=== PATIENT | female | born 1955 | race Caucasian/White ===

== ENCOUNTER 2018-08-12 08:02 | Outpatient (CLI) | payer OTHER | END 2018-08-12 08:03 | disposition home or self-care (01) | LOC: BICRAD 08:02 | PROVIDERS: ATTEND Surgery | DX: M54.16 Radiculopathy, lumbar region (principal); M43.16 Spondylolisthesis, lumbar region; M41.9 Scoliosis, unspecified | CPT/HCPCS: 72070; 72120 ==

== ENCOUNTER 2019-11-04 12:51 | Outpatient (CLI) | payer OTHER ==
--- NOTE | 2019-11-04 15:18 | CT ---
CT OF THE LUMBAR SPINE: DATE: 11/04/2019. COMPARISON: None. HISTORY: Scoliosis, spinal stenosis, low back pain. TECHNIQUE: Axial CT imaging at 2 mm intervals through the lumbar spine with coronal and sagittal reformatted jennifer ging. FINDINGS: Evaluation for central canal and/or neural foraminal stenosis is limited on routine CT examination. There is prominent levoscoliosis of the lumbar spine. Anterolisthesis of L4 on L5 noted measuring approximately 9 mm. T12-L1: There is disk space narrowing and mild bilateral facet hypertrophy. There is no osseous cau se of significant central canal or neural foraminal stenosis. L1-2: Severe disk space narrowing, degenerative end plate change, and anterior osteophyte formation. Significant facet hypertrophy on the right with severe right neural foraminal stenosis. There is r ight lateral osteophyte formation. No osseous cause of significant central canal or left neural fora raul stenosis. L2-3: Vacuum disk formation, disk space narrowing, and degenerative end plate change. Degenerative end plate changes are most prominent laterally on the right. Facet hypertrophy noted with severe rig ht neural foraminal stenosis. Probable mild central canal stenosis and left neural foraminal stenosi s. L3-4: Bilateral facet hypertrophy with moderate bilateral neural foraminal stenosis. Disk space wesley rowing with vacuum disk formation. Probable disk bulge with at least mild central canal stenosis. L4-5: Severe facet hypertrophy on the left with severe left neural foraminal stenosis. Moderate reyna tral canal stenosis suspected on the basis of disk bulge and anterolisthesis. Disk space narrowing a nd vacuum disk formation. Probable mild left neural foraminal stenosis. L5-S1: Vacuum disk formation noted. Bilateral facet hypertrophy noted, left greater than right. Se azeb left neural foraminal stenosis. No significant right neural foraminal stenosis. Disk bulge is suspected with at least mild central canal stenosis. No worrisome lytic or blastic bone lesion. No acute fracture or evidence of dislocation appreciated. 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 POS: KRISHAN
== END 2019-11-04 12:52 | disposition home or self-care (01) ==
LOC: SCSCT 12:51
PROVIDERS: ATTEND Surgery
DX: M48.061 Spinal stenosis, lumbar region without neurogenic claudication (principal); M47.816 Spondylosis without myelopathy or radiculopathy, lumbar region; M54.5 Low back pain; M41.9 Scoliosis, unspecified
CPT/HCPCS: 72131

== ENCOUNTER 2021-06-22 07:48 | Outpatient (CLI) | payer OTHER | END 2021-06-22 07:49 | disposition home or self-care (01) | LOC: SCSMRI 07:48 | PROVIDERS: ATTEND Anesthesiology Pain Medicine | DX: M51.16 Intervertebral disc disorders with radiculopathy, lumbar region (principal); M47.26 Other spondylosis with radiculopathy, lumbar region; M47.27 Other spondylosis with radiculopathy, lumbosacral region; M48.061 Spinal stenosis, lumbar region without neurogenic claudication; M48.07 Spinal stenosis, lumbosacral region; M43.16 Spondylolisthesis, lumbar region; M48.05 Spinal stenosis, thoracolumbar region; M41.9 Scoliosis, unspecified | CPT/HCPCS: 72148 ==

== ENCOUNTER 2023-10-10 17:00 | Outpatient (CLI) | payer MEDICARE | END 2023-10-10 17:01 | disposition home or self-care (01) | LOC: SLEEPLAB 17:00 | PROVIDERS: ATTEND Anesthesiology Pain Medicine | DX: G47.33 Obstructive sleep apnea (adult) (pediatric) (principal); I10 Essential (primary) hypertension; R40.0 Somnolence | CPT/HCPCS: 95811 ==